=== PATIENT | male | born 1955 | race Caucasian/White ===

== ENCOUNTER 2025-01-13 12:38 | Emergency (ER) | payer OTHER ==
[~2025-01-13] VITALS: Ht 175.3 cm; Wt 99.2 kg
[2025-01-13] MEDS ORDERED: ACYCLOVIR200 MG PO (13:08)
[2025-01-13] MEDS ORDERED: [UNRECOGNIZED DRUG - REMARK] (13:09)
[2025-01-13 13:27] LABS: BLOOD/HGB, URINE NEGATIVE (Negative); KETONE, URINE NEGATIVE (Negative); LEUK ESTERASE, URINE NEGATIVE (negative); NITRITE, URINE NEGATIVE (negative)
[2025-01-13 13:32] LABS: BACTERIA, URINE NONE SEEN /hpf (negative); CASTS, URINE NONE SEEN \\lpf; CRYSTALS, URINE NONE SEEN (0-1+); EPITHELIAL CELLS, URINE SQUAMOUS 1+ /lpf (0-1+); REFLEX CULTURE, URINE Yes (No)
[2025-01-13] MEDS ORDERED: DOXYCYCLINE HY100 MG PO (15:23)
[2025-01-13] MEDS ORDERED: CEFTRIAXONE SOD 500 MG VIAL IM ONE (15:30)
[2025-01-13] MEDS ORDERED: DOXYCYCLINE HYCLATE 100 MG CAP PO ONE (15:45)
[2025-01-13 16:03] VITALS: BP 135/90
[2025-01-13] MEDS ORDERED: DOXYCYCLINE HYCLATE 100 MG CAP PO SCH (21:00)
== END 2025-01-13 16:04 | disposition home or self-care (01) ==
LOC: ED 12:38
PROVIDERS: Emergency Medicine
DX: N34.2 Other urethritis (principal)
CPT/HCPCS: 81001; 87088; 96372; 99283; J0696